=== PATIENT | male | born 1990 | race Caucasian/White ===

== ENCOUNTER 2023-09-30 10:47 | Outpatient (CLI) | payer BC | END 2023-09-30 10:48 | disposition home or self-care (01) | LOC: RAD 10:47 | PROVIDERS: ATTEND Family Medicine | DX: I69.891 Dysphagia following other cerebrovascular disease (principal); R13.12 Dysphagia, oropharyngeal phase; S27.819A Unspecified injury of esophagus (thoracic part), initial encounter; S19.9XXA Unspecified injury of neck, initial encounter | CPT/HCPCS: 74230 ==